=== PATIENT | female | born 1965 | race Caucasian/White ===

== ENCOUNTER 2016-07-23 11:45 | Emergency (ER) | payer MEDICARE, OTHER ==
[~2016-07-23 11:45] MED LIST: GEODON60 MG PO; KLONOPIN0.5 MG; KLONOPIN0.5 MG PO; LAMICTAL PO; TOFRANIL PO
== END 2016-07-23 12:06 | disposition home or self-care (01) ==
LOC: SED 11:45
DX: S01.21XA Laceration without foreign body of nose, initial encounter (principal); F20.9 Schizophrenia, unspecified; Z23 Encounter for immunization; Z90.49 Acquired absence of other specified parts of digestive tract; Z90.710 Acquired absence of both cervix and uterus; W01.0XXA Fall on same level from slipping, tripping and stumbling without subsequent striking against object, initial encounter; Y92.89 Other specified places as the place of occurrence of the external cause
CPT/HCPCS: 12011; 90471; 90715; 99283